=== PATIENT | female | born 1985 | race African-American/Black ===

== ENCOUNTER 2019-06-22 00:46 | Day surgery (SDC) | payer OTHER, SELFPAY ==
[2019-06-07 11:41] VITALS: BMI 36.1
[2019-06-22] VITALS (9 sets, daily range): BP systolic 104–133; BP diastolic 43–79; PULSE 65–87; RESP 14–18; TEMP 36.2–36.8; O2SAT 98–100; BMI 36.6
[2019-06-22] MEDS: LACTATED RINGERS 1,000 ML 30 ML IV CONT ×2 (09:30→13:54)
--- NOTE | 2019-06-22 09:56 | WPDHPUPDATE1 ---
History and Physical Update Update Date/Time: 06/22/19 09:56 History and Physical has been reviewed, including an updated exam of the patient. There are NO changes in the patient's condition. Risks, benefits, and alternatives have been discussed and questions answered. Patient agrees to proceed with procedure.
--- NOTE | 2019-06-22 10:22 | WPDANESEPPF ---
Anes - Initial Pre Proc Eval Procedure: Operation Date: 06/22/19 11:00 Proposed Procedures p Bilateral Reduction Mammoplasty(Bilateral) - Anmol Pedraza MD Date/Time: 06/22/19 10:22 Surgeon: Anmol Pedraza MD Pre Op Diagnosis: Macromastia Patient Data Age: 34 Gender: F Height: 5 ft 4 in Weight: 96.8 kg Last Vital Signs Temp 98.2 F 06/22/19 09:30 Pulse 74 06/22/19 09:30 Resp 17 06/22/19 09:30 BP 106/64 06/22/19 09:30 Pulse Ox 100 06/22/19 09:30 Allergies Allergy/AdvReac Type Severity Reaction Status Date / Time No Known Allergies Allergy Verified 06/07/19 11:50 Home Medications Medication Instructions Recorded Confirmed Type sulfasalazine 500 mg PO BID 05/24/19 History tablet,delayed release Complete Multi 06/07/19 History vitamin B complex [B tablet 06/07/19 History Complex-Vitamin B12] Patient hx anesthesia problems: none Family hx anesthesia problems: none [facility] Past Medical History Medical History Autoimmune disease HLA-B27 Anes - Eval Final PreProcedure Day of Procedure 06/22/19 10:22 Patient weight: obese Heart: regular rate and rhythm Lungs: clear to auscultation Airway: Mallampati scale class 1 Neurological: alert and oriented Last oral intake: >/= 8 hours ASA classification: II Emergent: no Anesthetic plan: proceed Anesthesia type and monitoring: general LMA and standard monitoring Informed Consent: The patient's anesthetic plan and its attendant risks and benefits were discussed with the patient/family/POA. Questions were solicited and answers provided to the satisfaction of the patient/family/POA.
[2019-06-22] MEDS: ceFAZolin 2 GM/D5W 50 ML 2 GM/50 ML BAG IVPB ×2 (10:39)
[2019-06-22 12:48] LABS: Urine Cotinine NEGATIVE
--- NOTE | 2019-06-22 13:43 | PM.PROC ---
Procedure Note - Detailed Date of procedure: 06/22/19 Pre-op diagnosis: Macromastia Post-op diagnosis: same Procedure performed: Bilateral Breast Reduction Description of procedure: She is here today for bilateral breast reduction. Previously and again today the risks, benefits, alternatives were discussed in extensive detail. I wanted her to be very realistic about the risks involved as well as expectations. We discussed aftercare and what to monitor for. She understands we can never guarantee final breast size and there will always be asymmetry. I was very upfront and honest about the risks of sensation change and even nipple loss (). Made sure answered all of her questions to her satisfaction today and consent was obtained. She was marked in the preoperative holding area with their verification. The patient was taken to the operating room placed supine on the operating table. Anesthesia was provided by anesthesiology. She was prepped and draped in a standard sterile fashion. A surgical time-out was taken. Stab incisions were made and I tumessed with a tumescent solution. I marked out the nipple-areolar complex at 42 mm. I then de-epithelialized the pedicle. The pedicle was well left well more than 2 cm in thickness. I then removed the inferior portion of the breast as well as the central keel to get shape based on preoperative planning. At this point copiously irrigated with saline solution and verified a strict hemostasis. I reapproximated the pillars using a 2-0 PDS as well as along the IMF. I tailor tacked the breast into place with sunni. She was placed in a sitting position. I verified the nipple-areolar complex position based on preoperative markings, intraoperative measurements, and observation which were in full agreement. This nipple-areolar complex was marked at 42 mm in size. I then placed supine and de-epithelialized this. Nipple-areolar complex was inset with 3-0 Monocryl. I closed the vertical incision with 3-0 Monocryl in the IMF with 3-0 stratafix. Then everything was closed using a running subcuticular 4-0 Monocryl followed by Steri-Strips. A dressing was placed followed by surgical bra. Patient was awoke and taken to PACU without difficulty. All instrument sponge counts were correct at the end of the case. Anesthesia: GLMA Surgeon: Anmol Pedraza MD Estimated blood loss (mL): 50 Drains: No Packing: No Pathology: yes (Bilateral Breast Tissue) Complications: No immediate complications Condition: stable Disposition: PACU Findings: Right: 961 grams Left: 786 grams
--- NOTE | 2019-06-22 15:58 | SUR.PHASEII ---
1550: RN called Pharmacy to see if they received prescriptions from Dr. Pedraza. They said they have received them.
--- NOTE | 2019-06-22 16:37 | SUR.PHASEII ---
1635: Discharge instructions given to patient and spouse. Just waiting for patient to get dressed and be wheeled out to car.
== END 2019-06-22 16:55 | disposition home or self-care (01) ==
PROVIDERS: PCP Internal Medicine; Visit Provider Surgery Plastic and Reconstructive Surgery
PROC: 0HBV0ZZ Excision of Bilateral Breast, Open Approach (ICD-10-PCS; CPT 19318; principal; 2019-06-22 11:00)
DX: N62 Hypertrophy of breast (principal); N60.32 Fibrosclerosis of left breast; M35.8 Other specified systemic involvement of connective tissue; E66.9 Obesity, unspecified; Z68.36 Body mass index [BMI] 36.0-36.9, adult
CPT/HCPCS: 19318; 36415; 80307; 88305; A9270; J0171; J0690; J1100; J1170; J2250; J2405; J2704; J3010; J7120

== ENCOUNTER 2020-09-07 21:23 | Emergency (ER) | payer OTHER, SELFPAY ==
[2020-09-07 21:41] VITALS: BP 134/69; PULSE 78; RESP 16; TEMP 36.3; O2SAT 100
--- NOTE | 2020-09-07 23:07 | PC.NURSE ---
per request of dr gibson, ob to come over and monitor patient for lower abd cramping.
--- NOTE | 2020-09-07 23:15 | PC.NURSE ---
Pt presents to ED with complaints of nausea, dizziness, lightheadedness and intermittent sob. Pt states she is approx 20 weeks . States she became lightheaded while in the shower and felt near syncope. Pt states she was initially with twins and lost one. Complaining of lower abdominal pain and denies vaginal bleeding. at this time. Pt noted to be alert oriented x4 and in no obvious distress. OB nurse presented to bedside to monitor pt.
--- NOTE | 2020-09-07 23:17 | PC.NURSE ---
Pt ambulated in lugo without difficulty and no complaints to restroom to provide urine specimen. Pt now back in room and resting on cart in its lowest position with call button and personal items within reach. OB nurse presented to bedside.
--- NOTE | 2020-09-07 23:24 | PC.NURSE ---
OB nurse present at bedside states that baby is fine and is now monitoring pt. Pt added that she experienced abdominal cramping yesterday but not today.
[2020-09-07] MEDS: SODIUM CHLORIDE 0.9% IV 1,000 ML 999 ML IV CONT (23:27)
[2020-09-07] MEDS: METOCLOPRAMIDE HCL INJ 10 MG/2 ML VIAL IV PUSH (23:28)
[2020-09-07 23:29] LABS: Basophils Percent Auto 0.5 % (0.2-1.2); Eosinophils Absolute Auto 0.1 K/mm3 (0-0.3); Eosinophils Percent Auto 1.9 % (0-4.4); Hematocrit 35.8 % (37.0-47.0); Hemoglobin 11.6 g/dL (12.0-15.0); Immature Granulocyte Absolute 0.03 K/mm3 (0.00-0.031); Immature Granulocyte Percent A 0.5 % (0-0.5); Lymphocytes Absolute Auto 2.15 K/mm3 (0.9-3.2); Lymphocytes Percent Auto 33.2 % (18.3-44.2); Mean Corpuscular HGB Conc 32.4 g/dl (32-36); Mean Corpuscular Hemoglobin 27.8 pg (26-34); Mean Corpuscular Volume 85.9 fl (80-100); Mean Platelet Volume 11.6 fl (7.4-10.4); Monocytes Absolute Auto 0.6 K/mm3 (0.1-0.6); Monocytes Percent Auto 9.6 % (2.6-8.5); Neutrophils Absolute Auto 3.5 K/mm3 (1.3-6.7); Neutrophils Percent Auto 54.3 % (45.5-73.1); Platelet Count Result 229 k/mm3 (150-375); Red Blood Count 4.17 M/mm3 (4.2-5.4); Red Cell Distribution Width 13.2 % (11.5-14.5); White Blood Count 6.5 K/mm3 (4.5-10.0)
[2020-09-07 23:35] LABS: Add Urine Microscopic? YES; Appearance Urine Cloudy (Clear); Bacteria Urine Trace /hpf; Bilirubin Urine Negative (Negative); Blood Urine Negative (Negative); Color Urine Yellow (Yellow); Glucose Urine UA Negative (Negative); Ketones Urine Negative (Negative); Leukocyte Esterase Ur Negative LEU/UL (Negative); Mucus Urine Few /lpf; Nitrate Urine Negative (Negative); Protein Urine Negative (Negative); RBC Urine 0-2 /hpf (0-2); Specific Grav Ur 1.023 (1.001-1.035); Squamous Epithelial Cell Urine Many /hpf (Few); WBC Urine 0-3 /hpf
[2020-09-07 23:39] LABS: Alanine Aminotransferase 12 U/L (4-35); Albumin Level 3.5 g/dL (3.5-5.1); Alkaline Phosphatase 55 U/L (38-126); Anion Gap 3 mmol/L (8-16); Aspartate Amino Transferase 22 U/L (14-36); Bilirubin,Total 0.2 mg/dL (0.2-1.3); Blood Urea Nitrogen 5 mg/dL (7-17); Calcium 8.2 mg/dL (8.4-10.2); Carbon Dioxide 27 mmol/L (22-30); Chloride 105 mmol/L (98-107); Estimated CRCL calculation 130 ml/min; Estimated Glomerular Filt Rate > 60; Glucose 80 mg/dL (65-105); Sodium 135 mmol/L (137-145)
--- NOTE | 2020-09-07 23:46 | ED.GENADULT ---
HPI - General Adult General Chief complaint: Dizziness Stated complaint: , Dizziness Time Seen by Provider: 09/07/20 22:50 History of Present Illness HPI narrative: Patient 35-year-old female who presents the emergency department with chief complaint of dizziness. Patient reports that she is approximately 20 weeks and originally had twins and then had a miscarriage and finished bleeding at the end of July. The patient states that she is followed by a OB at [facility] patient states that she has been having some cramping in her low pelvis and also has had nausea and vomiting. The patient states that she has been taking both Zofran and another antinausea medication the patient states that she has been getting lightheaded particular whenever she stands up and today while she was taking a shower she started to become extremely lightheaded patient states that after the shower she attempted to go to the kitchen to drink some water and then had where she felt a little short of breath. The patient states that she has been having intermittent cramping in her low pelvis with this denies vaginal bleeding denies loss of fluids. Related Data Allergies Allergy/AdvReac Type Severity Reaction Status Date / Time No Known Allergies Allergy Verified 09/07/20 21:39 Review of Systems Review of Systems: Narrative: A 10 system review of systems was completed on the patient and is negative except for what is stated in the HPI. Nursing and ancillary documentation was reviewed. PMFSH Past Medical History Medical History (Updated 09/08/20 @ 02:03 by Luis Alarcon MD) Autoimmune disease HLA-B27 Social History Social History Gender identity (if verbalized by the patient): Female Exam Narrative: Exam Narrative: GENERAL: Well-appearing, well-nourished, and in no acute distress. HEAD: Normocephalic, atraumatic. EYES: PERRLA and EOMI. ENT: Nares clear, no rhinorrhea or epistaxis. Mucous membranes moist. NECK: Supple. CHEST: Clear to auscultation. No respiratory distress. HEART: Regular rate and rhythm. No murmur heard. Normal peripheral pulses. ABDOMEN: Soft, nontender, nondistended, normal active bowel sounds. EXTREMITIES: Normal range of motion. No edema. SKIN: Warm, dry, no rash. NEURO: No focal deficits. Alert and oriented x3. PSYCH: Normal mood and affect. Course Vital Signs Vital signs: Vital Signs Temperature 36.3 C L 09/07/20 21:41 Pulse Rate 78 09/07/20 21:41 Respiratory Rate 16 09/07/20 21:41 Blood Pressure 134/69 09/07/20 21:41 Pulse Oximetry 100 09/07/20 21:41 Temperature 36.3 C L 09/07/20 21:41 Pulse Rate 60 09/08/20 01:17 Respiratory Rate 20 09/08/20 01:17 Blood Pressure 103/71 09/07/20 23:59 Pulse Oximetry 99 09/08/20 01:17 Medical Decision Making Vital Signs Vital Signs: Vital Signs Temperature 36.3 C L 09/07/20 21:41 Pulse Rate 78 09/07/20 21:41 Respiratory Rate 16 09/07/20 21:41 Blood Pressure 134/69 09/07/20 21:41 Pulse Oximetry 100 09/07/20 21:41 Temperature 36.3 C L 09/07/20 21:41 Pulse Rate 60 09/08/20 01:17 Respiratory Rate 20 09/08/20 01:17 Blood Pressure 103/71 09/07/20 23:59 Pulse Oximetry 99 09/08/20 01:17 Lab Data Result diagrams: 09/07/20 23:12 09/07/20 23:12 Labs: Lab Results 09/07/20 09/07/20 09/07/20 Range/Units 23:12 23:12 23:12 WBC 6.5 (4.5-10.0) K/mm3 RBC 4.17 L (4.2-5.4) M/mm3 Hgb 11.6 L (12.0-15.0) g/dL Hct 35.8 L (37.0-47.0) % MCV 85.9 (80-100) fl MCH 27.8 (26-34) pg MCHC 32.4 (32-36) g/dl RDW 13.2 (11.5-14.5) % Plt Count 229 (150-375) k/mm3 MPV 11.6 H (7.4-10.4) fl Immature Gran % (Auto) 0.5 (0-0.5) % Neut % (Auto) 54.3 (45.5-73.1) % Lymph % (Auto) 33.2 (18.3-44.2) % [place] % (Auto) 9.6 H (2.6-8.5) % Eos % (Auto) 1.
--- NOTE | 2020-09-07 23:47 | PC.NURSE ---
FHT's doppled at 130 with accelerations to 165. Pt placed on toco monitor for 15 minutes; no contractions or irritability noted. Pt states she had irregular cramping yesterday, but had not felt any cramping today. Abdomen soft to palpate.
[2020-09-07 23:59] VITALS: BP 103/71; PULSE 66; RESP 20; O2SAT 100
--- NOTE | 2020-09-08 | PC.NURSE ---
Pt resting on cart and states she is beginning to feel better. No complaints or concerns voiced. Vitals are stable. Pt provided warm blanket for comfort. Call button and personal items within reach. Pt advised to press call button for assistance.
--- NOTE | 2020-09-08 01:00 | PC.NURSE ---
Pt on cart sleeping. No complaints or concerns voiced at this time. Pt states she feels better. Vitals are stable and pt in no obvious distress at this time.
[2020-09-08 01:17] VITALS: PULSE 60; RESP 20; O2SAT 99
--- NOTE | 2020-09-08 01:49 | PC.NURSE ---
Pt resting on cart and states she is feeling better and ready to go home. Pt remains alert and oriented x4 and vitals are stable. Advised to press call button for assistance.
[2020-09-08 02:09] VITALS: BP 103/61; PULSE 79; RESP 18; TEMP 36.8; O2SAT 98
[2020-09-08 02:11] VITALS: BP 103/61; PULSE 79; RESP 20; TEMP 36.8; O2SAT 98
== END 2020-09-08 02:13 | disposition home or self-care (01) ==
PROVIDERS: Emergency Provider Emergency Medicine; PCP Internal Medicine
DX: O21.9 Vomiting of pregnancy, unspecified (principal); O99.282 Endocrine, nutritional and metabolic diseases complicating pregnancy, second trimester; E86.0 Dehydration; M35.89 Other specified systemic involvement of connective tissue; O99.891 Other specified diseases and conditions complicating pregnancy; Z3A.20 20 weeks gestation of pregnancy
CPT/HCPCS: 36415; 80053; 81001; 85025; 96361; 96374; 99284; J2765; J7030